=== PATIENT | male | born 1970 | race Hispanic/Latino ===

== ENCOUNTER 2021-08-08 06:22 | Emergency (ER) | payer OTHER ==
[~2021-08-08] VITALS: Ht 144.8 cm; Wt 63.0 kg
[2021-08-08 06:31] VITALS: BP 118/80
[2021-08-08 07:00] VITALS: BP 102/71
[2021-08-08 08:41] VITALS: BP 102/71
== END 2021-08-08 08:51 | disposition home or self-care (01) | DRG 605 ==
LOC: ED 06:22
DX: S00.83XA Contusion of other part of head, initial encounter (principal); M25.511 Pain in right shoulder; W01.0XXA Fall on same level from slipping, tripping and stumbling without subsequent striking against object, initial encounter; Y92.89 Other specified places as the place of occurrence of the external cause; Y99.0 Civilian activity done for income or pay